=== PATIENT | male | born 1945 | race Caucasian/White ===

== ENCOUNTER → 2018-05-26 | Outpatient (CLI) | payer MEDICARE ==
[~2018-05-26] MED LIST: AFRIN 15 ML15 ML NAS; DUO-KAPS1 CAP PO; FERROUS SU325 MG/TAB PO; FOLIC ACID 11 MG/TA1 PO; LIPITOR 10MG10 MG PO; PROTONIX 40MG T40 MG PO; THIAMINE 1100 MG/TAB PO
[2018-05-26 10:53] LABS: HEMATOCRIT 29.8 % (42.0-52.0)
== END ==
LOC: COL.LAB 10:05
PROVIDERS: Physician Assistant
DX: K92.2 Gastrointestinal hemorrhage, unspecified (principal)

== ENCOUNTER → 2018-07-22 | Outpatient (CLI) | payer MEDICARE | LOC: COL.RAD 07-21 12:04 | DX: M86.9 Osteomyelitis, unspecified (principal) | CPT/HCPCS: A9503 ==

== ENCOUNTER 2019-01-26 04:43 | Inpatient (IN) | payer MEDICARE ==
[2019-01-26] VITALS (84 sets, daily range): BP systolic 145–177; BP diastolic 04–102; PULSE 79–89; TEMP 97.8–98.4; O2SAT 90–100
[~2019-01-26] VITALS: Ht 180.3 cm; Wt 88.9 kg
[2019-01-26 05:16] LABS: BASO % 0.4 % (0.0-2.0); EOS # 0.2 (0.0-0.7); EOS % 3.4 % (0-4.0); GRAN # 4.3 (1.4-6.5); GRAN % 63.6 % (42.2-75.2); HEMATOCRIT 40.8 % (42.0-52.0); HEMOGLOBIN 13.6 g/dl (13.5-18.0); LYMPH # 1.7 (1.2-3.4); MEAN CELL VOLUME 86 fl (80.0-100.0); MEAN CORPUSCULAR HEMOGLOBIN 29 pg (27.0-31.0); MEAN CORPUSCULAR HGB CONC 33 g/dl (33.0-37.0); MEAN PLATELET VOLUME 10.4 fl (7.4-10.4); MONO # 0.5 (0.1-0.6); MONO % 7.2 % (1.7-9.3); PLATELET COUNT 225 K/mm3 (130-400); RED BLOOD COUNT 4.77 M/mm3 (4.20-5.60)
[2019-01-26 05:20] LABS: PROTHROMBIN TIME 11.3 SECONDS (9.7-12.8)
[2019-01-26 05:23] LABS: PARTIAL THROMBOPLASTIN TIME 31.8 SECONDS (26.0-37.0)
[2019-01-26 05:25] LABS: ALANINE AMINOTRANSFERASE 15 U/L (21-72); ALKALINE PHOSPHATASE 108 U/L (50-136); ANION GAP 11 mmol/L (7-16); AST,SGOT 19 U/L (15-37); BILIRUBIN,TOTAL 0.4 mg/dL (0.0-1.0); BLOOD UREA NITROGEN 18 mg/dL (9-20); CARBON DIOXIDE 25 mmol/L (22-30); CHLORIDE 107 mmol/L (98-107); CREATININE, serum 1.01 (0.66-1.25); GLUCOSE 126 mg/dL (74-106); POTASSIUM 3.9 mmol/L (3.4-5.0); SODIUM 143 mmol/L (137-145); TOTAL PROTEIN 7.3 gm/dL (6.4-8.2)
[2019-01-26] MEDS ORDERED: ZYLOPRIM 100MG100 MG PO (05:26)
[2019-01-26] MEDS ORDERED: ZANTAC 150MG T150 MG PO (05:28)
[2019-01-26 05:30] LABS: ALCOHOL(ethanol),MEDICAL < 10 mg/dL
[2019-01-26 05:36] LABS: TROPONIN-I < 0.012 ng/mL (0.000-0.035)
--- NOTE | 2019-01-26 07:59 | NUR ---
Patient brought from ER via stretcher. Patient is able to transfer ambulatory from stretcher to the bed. Monitors placed on patient. Patient is alert and oriented x 3. States that he woke up this AM with c/o left side numbness and weakness this AM These symptoms have come and gone since arrived to the ER. Patient currently has no known deficit's. Noted stregnth equal to both sides. No facial drooping. Patient currently denies any c/o pain/discomfort. Skin w/d. Color pale pink. Lungs CTA with resp even and unlabored. Currently on RA with 02 sats 98%. Patient states he has been having difficultly with nasal sinus problems that he uses Afrin Nasal Spary. Abd soft/rounded with bowel sounds x 4 quads. PPP. No pedal edema. Dr. Nunez and family in room at this time
--- NOTE | 2019-01-26 08:20 | NUR ---
Patient up to the commode ambulatory. Voided without difficulty
--- NOTE | 2019-01-26 08:40 | NUR ---
Patient's family expressed to this nurse that patient had developed sx's of left side numbness/weakness again. Went to check on patient and noted that left side was completely flaccid with a new NIHS stroke scale of 12. Patient had definate facial droop on the left. No movement of left leg/arm possible. Dr. Harper had just been called for consult and will be to the unit at any time to evaluate patient.
--- NOTE | 2019-01-26 08:45 | NUR ---
Dr. Harper/Dr. Nunez at bedside to see pateint. Continues to have left sided weakness
--- NOTE | 2019-01-26 08:50 | NUR ---
Symptoms remain prevelant at this time. Dr. Harper request that the Stroke line be called for transfer to [facility]
--- NOTE | 2019-01-26 08:55 | NUR ---
Dr. Harper speaking with Dr. Hay. New orders recieved to adminster per TPA and transfer to [facility] by [facility]. Pharmacy called to make aware; Charge Nurse, Mahi called to ask for assistance; production machine shop supervisor called for transport of patient to [facility] via [facility].
--- NOTE | 2019-01-26 09:00 | NUR ---
Emilia, with [facility] transfer line called with [facility] for [facility]. 2nd harleyer, Avis Reid. Elevators
--- NOTE | 2019-01-26 09:03 | NUR ---
Sx starting to resolve per patients report. Continue to note a decrease in sensation/weakness on the left. 16 fr ignacio inserted at this time. Noted a small amount of blood intially due to prostate problems. Urine clear yellow.
--- NOTE | 2019-01-26 09:09 | NUR ---
VS 174/94 P-73; Resp - 20; 02 sats 96%
--- NOTE | 2019-01-26 09:12 | NUR ---
Accu Check done - 109
--- NOTE | 2019-01-26 09:20 | NUR ---
Consent signed for TPA. Bolus - 8ml of TPA given at 0916. A drip of TPA then was started at 0918. Will monitor for any changes in patient condtion or cognition. Family remains at bedside
--- NOTE | 2019-01-26 09:30 | NUR ---
Dr. Nunez here to see patient prior to transfer. No new orders.
--- NOTE | 2019-01-26 09:48 | NUR ---
[facility] here to setup operator patient. Report given to [facility] nurses. Patient currently has TPA & NS infusing. VS 157/79 - 73 - 98% on RA. SX are resolving. Patient denies any other c/os' of pain/discomfort or headache. Cognitively patient remains at baseline.. Alert an oriented x 3. NIHS stroke scale done and noted to score a 1 at this time. He does continue to c/o numbness in his left arm.
--- NOTE | 2019-01-26 09:54 | NUR ---
SW attempted to meet with the patient. But the patient is being airlifted to [facility] for treatment. There are no additional needs at this time.
--- NOTE | 2019-01-26 10:00 | NUR ---
[facility] left at this time. Report given to RN at [facility]. Questions answered.
== END 2019-01-26 10:00 | disposition short-term general hospital (02) | DRG 63 ==
LOC: COL.ER 04:43 → ICU 06:56
PROVIDERS: Emergency Medicine
DX: G45.8 Other transient cerebral ischemic attacks and related syndromes (principal); I10 Essential (primary) hypertension; E78.5 Hyperlipidemia, unspecified; Z79.1 Long term (current) use of non-steroidal anti-inflammatories (NSAID); M19.90 Unspecified osteoarthritis, unspecified site
CPT/HCPCS: J2997; J7030; Q9967

== ENCOUNTER → 2020-04-24 | Outpatient (CLI) | payer MEDICARE ==
[~2020-04-24] VITALS: Ht 180.3 cm; Wt 85.5 kg
[~2020-04-24] MED LIST changes: +ASPIRIN 81M81 MG/TA2 PO; +LIPITOR 40MG TA40 MG PO; +ZANTAC 150MG T150 MG PO; +ZYLOPRIM 100MG100 MG PO
[2020-04-24 12:24] VITALS: BP 184/100; PULSE 71
[2020-04-24 13:30] VITALS: BP 170/100; PULSE 64
== END ==
LOC: COL.RAD 11:59
DX: M50.122 Cervical disc disorder at C5-C6 level with radiculopathy (principal)
CPT/HCPCS: J1100